=== PATIENT | female | born 1940 | race Caucasian/White ===

== ENCOUNTER → 2017-02-21 15:05 | Outpatient (CLI) | payer MEDICARE, BC ==
[2012-01-15 16:54] VITALS: BMI 28.6
== END | disposition home or self-care (01) ==
LOC: D.MAMMO 10:00
DX: Z12.31 Encounter for screening mammogram for malignant neoplasm of breast (principal)

== ENCOUNTER → 2017-03-05 13:09 | Outpatient (CLI) | payer MEDICARE, BC ==
[2012-01-15 16:54] VITALS: BMI 28.6
== END | disposition home or self-care (01) ==
LOC: D.RT 13:09
DX: J84.10 Pulmonary fibrosis, unspecified (principal)

== ENCOUNTER → 2017-03-22 12:58 | Outpatient (CLI) | payer MEDICARE, BC ==
[2012-01-15 16:54] VITALS: BMI 28.6
== END | disposition home or self-care (01) ==
LOC: D.MAMMO 09:30
DX: R92.8 Other abnormal and inconclusive findings on diagnostic imaging of breast (principal)

== ENCOUNTER 2017-04-22 16:05 | Emergency (ER) | payer MEDICARE, BC ==
[2012-01-15 16:54] VITALS: BMI 28.6
[2017-04-22 18:17] LABS: BASOPHILS 0.5 % (0-2); EOSINOPHILS 3.5 % (0-7); HEMATOCRIT 36.3 % (36.0-48.0); HEMOGLOBIN 12.1 g/dL (12-16); IMMATURE GRANULOCYTES 0.3 % (0-5); LYMPHOCYTES 29.8 % (15-50); MCH 29.5 pg (26.0-34.0); MCHC 33.3 g/dL (31.0-37.0); MCV 88.5 fL (80.0-100.0); MEAN PLATELET VOLUME 10.2 fL (7.4-10.4); NEUTROPHILS 58.9 % (40-80); PLATELET COUNT 167 10x3/uL (130-400); RDW 13.7 % (11.5-14.5); WBC 6.3 10x3/uL (4.8-10.8)
[2017-04-22 18:37] LABS: ALBUMIN 3.8 g/dL (3.4-5.0); ALKALINE PHOSPHATASE 87 U/L (46-116); ALT (SGPT) 37 U/L (10-68); BILIRUBIN - TOTAL 0.33 mg/dL (0.2-1.3); CALC OSMOLALITY 285 mosm/kg (275-300); CALCIUM 9.1 mg/dL (8.5-10.1); CARBON DIOXIDE 24.8 mmol/L (21.0-32.0); CHLORIDE - SERUM 106 mmol/L (98-107); CREATININE - SERUM 1.6 mg/dL (0.6-1.3); GLUCOSE 94 mg/dL (74-106); POTASSIUM - SERUM 3.8 mmol/L (3.5-5.1); SODIUM 142 mmol/L (136-145); UREA NITROGEN 21 mg/dL (7-18); eGFR NON AFRICAN AMERICAN 33 mL/min (90-120)
[2017-04-22 18:41] LABS: CREATINE KINASE 86 UL (21-215)
[2017-04-22 18:43] LABS: TROPONIN-I < 0.017 ng/mL (0.000-0.060)
== END 2017-04-22 19:38 | disposition home or self-care (01) ==
LOC: D.ER 16:05
PROVIDERS: Nurse Practitioner Family
DX: G50.0 Trigeminal neuralgia (principal); I10 Essential (primary) hypertension; K21.9 Gastro-esophageal reflux disease without esophagitis

== ENCOUNTER → 2017-09-27 09:26 | Outpatient (CLI) | payer MEDICARE, BC ==
[2012-01-15 16:54] VITALS: BMI 28.6
== END | disposition home or self-care (01) ==
LOC: D.RT 09:26
DX: R91.1 Solitary pulmonary nodule (principal); J84.10 Pulmonary fibrosis, unspecified

== ENCOUNTER 2017-10-11 18:38 | Inpatient (IN) | payer MEDICARE, BC ==
--- NOTE | ~2017-10-11 | HP ---
PATIENT: SAMMI DURAN MEDICAL RECORD: [id number] ACCOUNT: [id number] LOCATION:D.MS Chi2203 : 38 ADMISSION DATE: 10/11/17 HISTORY AND PHYSICAL EXAMINATION REASON FOR ADMISSION: Shortness of breath, cough and right shoulder pain. HISTORY OF PRESENT ILLNESS: The patient is a 76-year-old female well known to me with history of pulmonary fibrosis. She states, 2 days ago she noted onset of increasing cough, congestion without sputum production. She denied fever until last night in the ER. After admission, she developed some pain in her right upper shoulder area as well, but that has gotten better. Chest pain was worse on deep inspiration. PAST MEDICAL HISTORY: Pulmonary fibrosis, osteoarthritis, depression, remote pulmonary embolism after sustaining a DVT after total hip replacement, essential hypertension, dyslipidemia, GERD, meralgia paresthetica of right lower extremity, osteoarthritis of left knee, urinary incontinence, varicose veins o lower extremities. PAST SURGICAL HISTORY: Bilateral hip replacements. FAMILY HISTORY: Father at 67, had renal disease and diabetes. Mother with hypertension. SOCIAL HISTORY: Recently . Her had severe dementia for the last 5 years of his life and was very stressful situation for her. She is a non-smoker, nondrinker lifelong, ALLERGIES: TO RIN INHIBITORS AND AMITRIPTYLINE CAUSING NAUSEA, DETROL, MOBIC AND VOLTAREN INTOLERANCE. HOME MEDICATIONS: Gabapentin 100 mg p.o. t.i.d., Nexium 40 mg a day, DuoNeb updrafts 3 times daily, Proventil HFA rescue inhaler p.r.n., Tegretol-XR 100 mg p.o. nightly, Advair Diskus 250/50 one puff b.i.d., chlorthalidone 25 mg every morning, Vining 5/325 one every 4 to 6 hours p.r.n. severe pain, carbamazepine ER 100 tablets 1 by mouth every 12 hours, metoprolol succinate ER 50 mg p.o. daily, diclofenac sodium 50 mg p.o. b.i.d., Dyazide 1 every morning. REVIEW OF SYSTEMS: GENERAL: She has been fatigued, worse in the last 2 days and fever spiking the night of admission. HEENT: No recent visual change, sinus congestion, sore throat or hearing difficulty. She does wear glasses to read. RESPIRATORY: Increasing cough, congestion, nonproductive for the last 2 days with pleuritic type pain in her right upper chest. No hemoptysis. CARDIAC: No exertional chest pain, just rest pain on deep inspiration. No recent increasing edema in her lower extremities or palpitations. GASTROINTESTINAL: No nausea, vomiting, or change in bowel habits. ENDOCRINE: Denies polyuria, polydipsia, heat or cold intolerance. NEUROLOGIC: Denies motor or sensory deficits, confusion or memory loss. PSYCHIATRIC: Admits to depressed moods due to her 's . GENITOURINARY: Mild stress incontinence. No dysuria. MUSCULOSKELETAL: She has chronic intermittent pain in her lumbar spine and her knees. HISTORY AND PHYSICAL [id number] SAMMI DURAN PHYSICAL EXAMINATION: VITAL SIGNS: Temperature 99.7 Fahrenheit orally, pulse 104 and regular, respirations are 16, blood pressure 124/64 with a sat of 95% on room air. HEENT: Normocephalic. Eyes are clear. Pupils reactive. NECK: No bruits or masses. CHEST: Crackles bibasilar which are chronic. On deep inspiration, she has some pleuritic pain on her right upper chest and scapular area. HEART: Regular rate without murmur. ABDOMEN: Soft and nontender. PELVIC: Deferred. EXTREMITIES: Trace bipedal edema. Hips; fair range of motion. She has crepitus to left knee to flexion and extension. LABORATORY AND DIAGNOSTIC DATA: [place] [address], H&H of 11 and 34 respectively. Chemistry shows sodium of 132, potassium 4.3, BUN and creatinine of 31 and 2.2, glucose of 121, alkaline phosphatase of 133. ABG: pH 7.42, CO2 32.8, pO2 103 on 2 liters. D-dimer elevated at 2.77. Influenza A and B are negative. Chest x-ray reveals interstitial and alveolar airspace disease suspicious for pneumonia at bibasilar areas. VQ lung scan suggostive for high probability of left lower lobe pulmonary emboli. Venous Doppler shows no evidence of DVT. ASSESSMENT: 1. Acute left lower lobe pulmonary embolus. 2. Probable community-acquired pneumonia. 3. Pulmonary fibrosis. 4. Hypertension. 5. Hyperlipidemia. 6. History of trigeminal neuralgia. 7. Hyponatremia. PLAN: The patient is admitted for supplemental O2, subq Lovenox, placed on empiric antibiotics for community-acquired pneumonia, pulmonary toilet, pulmonary consultation. Diagnoses and hospital course discussed with the family. TRANSINT:[id number] Voice Confirmation ID: [id number] DOCUMENT ID: [id number] DAWSON ORTIZ MD at 1001 CC: [id number] DICTATION DATE: 10/12/17 1309 ELECTRIC DISTRIBUTION CHECKER: 10/12/172049 ADM IN [place] [id number] [place] [id number]
--- NOTE | ~2017-10-11 | CN ---
PATIENT NAME:SAMMI REYES MEDICAL RECORD: [id number] : 38 LOCATION:D.MS [facility]220 ADMIT DATE: 10/11/17 ACCOUNT: [id number] CONSULTING PHYSICIAN: ANUEL VELIZ MD REFERRING PHYSICIAN: LAI MATTSON MD DATE OF CONSULTATION: 10/12/2017 CONSULT REQUESTING PHYSICIAN: Lai Mattson MD REASON FOR CONSULTATION: Pulmonary embolism, pulmonary fibrosis and possible pneumonia. HISTORY OF PRESENT ILLNESS: Ms. Reyes is a 76-year-old female, very well known to me who has a history of chronic hypoxic respiratory pulmonary embolism. According to the patient, she was in her usual state of her health. For the last 3 days, she has coughing, wheezing and shortness of breath, but yesterday her shortness of breath got very worse and she has also right shoulder pain and the patient came into the ER. On evaluation, she was found that the patient has a pulmonary embolism, suspect pneumonia and the patient admitted to the hospital. She has cough with very little sputum production. Denies any fever or chills. There are no night sweats. REVIEW OF SYSTEMS: As in history of present illness. PAST MEDICAL HISTORY: 1. Chronic hypoxic respiratory failure. 2. Idiopathic pulmonary fibrosis. 3. Hypertension. 4. Urinary frequency. 5. Gastroesophageal reflux disease. 6. History of secondhand smoking with underlying COPD. PERSONAL AND SOCIAL HISTORY: The patient is a . Her just a few weeks ago. She is a nondrinker. FAMILY HISTORY: Noncontributory. PAST SURGICAL HISTORY: She has a right total knee replacement in 2007. ALLERGIES: No known drug allergies. PRESENT MEDICATIONS: She is on Advair, Zithromax IV, Rocephin IV. Her other medication is reviewed. PERSONAL AND SOCIAL HISTORY: The patient is a . She is a nonsmoker, nondrinker. She does have a heavy secondhand exposure to smoking because of her . PHYSICAL EXAMINATION: GENERAL: Now, the patient is lying comfortable in bed. She is not in any acute distress. VITAL SIGNS: The blood pressure is 133/60, pulse is 95, respirations 20, temperature is 100.8, SpO2 is 97% on 2 liters nasal cannula. HEENT: Conjunctivae pink, sclerae nonicteric. NECK: Supple. No JVD. CONSULT REPORT [id number] SAMMI REYES CHEST: There are bilateral crackles with rales. No wheezing. HEART: Rhythm regular, normal sound, no murmur. ABDOMEN: Soft, bowel sounds present. No hepatosplenomegaly. RECTAL: Deferred. EXTREMITIES: No cyanosis, no clubbing, no pedal edema. SKIN: Warm, normal turgor. CENTRAL NERVOUS SYSTEM: The patient is awake and alert. There is no obvious cranial nerve abnormality. The gait was not tested. IMAGING: Chest radiograph, there is bilateral lower lobe interstitial infiltrate. VQ scan is high probability for PE with perfusion defects in the left lower lobe. LABORATORY DATA: CBC; the WBC is 14.8, hemoglobin 11.4, hematocrit 34.5, the platelet count 191. Chemistry; sodium 132, potassium 4.3, BUN is 31, creatinine 2.2. IMPRESSION: 1. Bibasilar pneumonia. 2. Mvhpx-gf-qzvkdfx hypoxic respiratory failure. 3. Pulmonary embolism. 4. Idiopathic pulmonary fibrosis. 5. Suspect chronic obstructive pulmonary disease with exacerbation. 6. Acute leukocytosis. 7. Chronic kidney disease. RECOMMENDATION: 1. Discontinue Advair, start her on Brovana and budesonide nebulizer. 2. Xopenex nebulizer. 3. Start methylprednisolone IV. 4. Discontinue Zithromax, start on Levaquin, continue Rocephin. We will continue Lovenox 1 mg per kg subQ b.i.d. for 3 days, then we will change her to oral agents. Dr. Mattson, thank you for involving me in the care of Ms. Reyes. Followup labs and chest radiographs. TRANSINT:[id number] Voice Confirmation ID: [id number] DOCUMENT ID: [id number] ANUEL VELIZ MD at 1340 CC: LAI MATTSON [id number] DICTATION DATE: 10/12/17 1646 CABINETMAKER HELPER: 10/12/172141 DIS IN 10/18/17 [place] [id number] [place] [id number]
[2017-10-11 19:31] LABS: BASOPHILS 0.1 % (0-2); EOSINOPHILS 1.1 % (0-7); HEMATOCRIT 34.5 % (36.0-48.0); HEMOGLOBIN 11.4 g/dL (12-16); IMMATURE GRANULOCYTES 0.4 % (0-5); LYMPHOCYTES 7.7 % (15-50); MCH 29.9 pg (26.0-34.0); MCV 90.6 fL (80.0-100.0); MEAN PLATELET VOLUME 9.9 fL (7.4-10.4); NEUTROPHILS 81.7 % (40-80); PLATELET COUNT 191 10x3/uL (130-400); RBC 3.81 10x6/uL (4.00-5.40); RDW 13.5 % (11.5-14.5); WBC 14.8 10x3/uL (4.8-10.8)
[2017-10-11 19:47] LABS: ALBUMIN 3.5 g/dL (3.4-5.0); ALKALINE PHOSPHATASE 133 U/L (46-116); ALT (SGPT) 33 U/L (10-68); BILIRUBIN - TOTAL 0.81 mg/dL (0.2-1.3); CALC OSMOLALITY 272 mosm/kg (275-300); CALCIUM 9.1 mg/dL (8.5-10.1); CARBON DIOXIDE 24.1 mmol/L (21.0-32.0); CHLORIDE - SERUM 97 mmol/L (98-107); CREATININE - SERUM 2.2 mg/dL (0.6-1.3); GLUCOSE 121 mg/dL (74-106); POTASSIUM - SERUM 4.3 mmol/L (3.5-5.1); PROTEIN - SERUM 8.3 g/dL (6.4-8.2); SODIUM 132 mmol/L (136-145); UREA NITROGEN 31 mg/dL (7-18); eGFR NON AFRICAN AMERICAN 23 mL/min (90-120)
[2017-10-11 20:09] LABS: CHOL - HDL RATIO 3.2 ratio (2.3-4.1); CHOLESTEROL, TOTAL 143 mg/dL (0-200); CKMB 0.9 U/L (0.0-3.6); CREATINE KINASE 77 UL (21-215); HDL CHOLESTEROL 45 mg/dL (32-96); LDL CHOLESTEROL 86 mg/dL (0-100); LDL-HDL RATIO 1.9 ratio (1.5-3.5); TRIGLYCERIDE 60 mg/dL (30-200)
[2017-10-11 20:11] LABS: TROPONIN-I < 0.017 ng/mL (0.000-0.060)
[2017-10-12 00:30] VITALS: BP 141/60; BMI 28.3
[2017-10-12] MEDS ORDERED: NEXIUM40 MG PO (00:57)
[2017-10-12] MEDS ORDERED: DICLOFENAC SODI50 MG PO (00:57)
[2017-10-12] MEDS ORDERED: TOPROL XL50 MG PO (00:59)
[2017-10-12] MEDS ORDERED: ADVAIR 250/501 DISK INH (01:00)
[2017-10-12] MEDS ORDERED: GABAPENTIN100 MG PO (01:00)
[2017-10-12 04:00] VITALS: BP 118/55
[2017-10-12 09:00] VITALS: BP 115/62
[2017-10-12 12:45] VITALS: BP 133/60
[2017-10-12 16:41] VITALS: BP 120/56
[2017-10-12 20:00] VITALS: BP 128/82
[2017-10-13 04:00] VITALS: BP 157/82
[2017-10-13 05:22] LABS: BASOPHILS 0 % (0-2); EOSINOPHILS 0 % (0-7); HEMATOCRIT 36.4 % (36.0-48.0); HEMOGLOBIN 11.9 g/dL (12-16); IMMATURE GRANULOCYTES 0.4 % (0-5); LYMPHOCYTES 6.7 % (15-50); MCH 29.1 pg (26.0-34.0); MCHC 32.7 g/dL (31.0-37.0); MEAN PLATELET VOLUME 10.4 fL (7.4-10.4); MONOCYTES 1.8 % (2-11); NEUTROPHILS 91.1 % (40-80); RBC 4.09 10x6/uL (4.00-5.40); RDW 13.3 % (11.5-14.5)
[2017-10-13 05:23] LABS: PLATELET COUNT 232 10x3/uL (130-400); WBC 8.4 10x3/uL (4.8-10.8)
[2017-10-13 05:37] LABS: ANION GAP 17.1 mmol/L (8-16); CALCIUM 9.7 mg/dL (8.5-10.1); CARBON DIOXIDE 22.9 mmol/L (21.0-32.0); CREATININE - SERUM 1.4 mg/dL (0.6-1.3)
[2017-10-13 09:19] VITALS: BP 126/71
[2017-10-13 12:45] VITALS: BP 118/62
[2017-10-13 14:45] VITALS: BP 137/60
[2017-10-13 21:18] VITALS: BP 131/68
[2017-10-14 04:00] VITALS: BP 144/69
[2017-10-14 08:33] VITALS: BP 123/56
[2017-10-14 12:36] VITALS: BP 112/53
[2017-10-14 17:01] VITALS: BP 120/51
[2017-10-14 21:21] VITALS: BP 127/53
[2017-10-15 01:15] VITALS: BP 180/70
[2017-10-15 04:38] VITALS: BP 139/77
[2017-10-15 08:02] VITALS: BP 152/79
[2017-10-15 11:23] VITALS: BP 133/61
[2017-10-15 16:06] VITALS: BP 128/64
[2017-10-15 21:14] VITALS: BP 111/51
[2017-10-16 01:38] VITALS: BP 134/67
[2017-10-16 05:55] VITALS: BP 126/76
[2017-10-16 09:18] VITALS: BP 123/54
[2017-10-16 13:06] VITALS: BP 120/63
[2017-10-16 16:35] VITALS: BP 106/56
[2017-10-16 21:30] VITALS: BP 122/60
[2017-10-17 01:10] VITALS: BP 143/71
[2017-10-17 04:36] VITALS: BP 148/74
[2017-10-17 08:45] VITALS: BP 146/62
[2017-10-17 12:37] VITALS: BP 115/63
[2017-10-17 16:49] VITALS: BP 131/68
[2017-10-18] MEDS ORDERED: BROVANA15 MCG/2 M INH (06:49)
[2017-10-18] MEDS ORDERED: PREDNISONE20 MG PO (06:51)
[2017-10-18] MEDS ORDERED: Levaquin PO (06:52)
[2017-10-18] MEDS ORDERED: IPRAT-ALBUT 0.5-3 ML INH (06:52)
[2017-10-18] MEDS ORDERED: LEVAQUIN500 MG PO (06:52)
[2017-10-18] MEDS ORDERED: PULMICORT0.5 MG/21 UPD (06:52)
[2017-10-18] MEDS ORDERED: XARELTO15 MG PO (06:54)
[2017-10-18 08:50] VITALS: BP 121/67
== END 2017-10-18 10:48 | disposition home or self-care (01) | DRG 175 ==
LOC: D.ER 18:38 → D.MS 21:18 → D.SDCHOLD 10-12 13:19 → D.MS 10-12 13:20
PROVIDERS: Emergency Medicine; Family Medicine
DX: I26.99 Other pulmonary embolism without acute cor pulmonale (principal); J18.9 Pneumonia, unspecified organism; J96.21 Acute and chronic respiratory failure with hypoxia; N17.9 Acute kidney failure, unspecified; J98.11 Atelectasis; J84.112 Idiopathic pulmonary fibrosis; I12.9 Hypertensive chronic kidney disease with stage 1 through stage 4 chronic kidney disease, or unspecified chronic kidney disease; N18.9 Chronic kidney disease, unspecified; D64.9 Anemia, unspecified; E78.5 Hyperlipidemia, unspecified; K21.9 Gastro-esophageal reflux disease without esophagitis

== ENCOUNTER → 2018-02-22 10:06 | Outpatient (CLI) | payer MEDICARE, BC ==
[~2018-02-22 10:06] MED LIST: ADVAIR 250/501 DISK INH; Augmentin 500-125 TA PO; BROVANA15 MCG/2 M INH; DICLOFENAC SODI50 MG PO; GABAPENTIN100 MG PO; IPRAT-ALBUT 0.5-3 ML INH; LEVAQUIN500 MG PO; Levaquin PO; NEXIUM40 MG PO; PREDNISONE20 MG PO; PULMICORT0.5 MG/21 UPD; TOPROL XL50 MG PO; ULTRAM50 MG PO; XARELTO15 MG PO
[2018-02-22 11:02] LABS: ALBUMIN 3.6 g/dL (3.4-5.0); BILIRUBIN - DIRECT 0.13 mg/dL (0.00-0.30); BILIRUBIN - INDIRECT 0.17 mg/dL (0.00-1.00); BILIRUBIN - TOTAL 0.3 mg/dL (0.2-1.3); PROTEIN - SERUM 7.2 g/dL (6.4-8.2)
== END | disposition home or self-care (01) ==
LOC: D.LAB 10:06
PROVIDERS: Internal Medicine Pulmonary Disease
DX: J84.112 Idiopathic pulmonary fibrosis (principal)

== ENCOUNTER → 2018-04-03 08:42 | Outpatient (CLI) | payer MEDICARE, BC | END | disposition home or self-care (01) | LOC: D.RT 08:42 | DX: R91.1 Solitary pulmonary nodule (principal); J84.112 Idiopathic pulmonary fibrosis ==

== ENCOUNTER 2018-04-25 08:47 | Inpatient (IN) | payer MEDICARE, BC ==
[2018-04-25] VITALS (15 sets, daily range): BP systolic 115–175; BP diastolic 39–85
[~2018-04-25] VITALS: Ht 167.6 cm; Wt 72.0 kg
--- NOTE | ~2018-04-25 | CN ---
PATIENT NAME:SAMMI REYES MEDICAL RECORD: [id number] : 38 LOCATION:D.MS [facility]2217 ADMIT DATE: 04/25/18 ACCOUNT: [id number] CONSULTING PHYSICIAN: ANUEL VELIZ MD REFERRING PHYSICIAN: LAI MATTSON MD DATE OF CONSULTATION: 04/28/2018 CONSULT REQUESTING PHYSICIAN: Lai Mattson MD REASON FOR CONSULTATION: Questionable IVC filter placement. HISTORY OF PRESENT ILLNESS: Ms. Reyes is a 77-year-old female who has history of idiopathic pulmonary fibrosis and chronic hypoxic respiratory failure. She had pulmonary embolism in September. The patient was on Xarelto. She started bleeding, lower GI. She is also having some GI symptoms with Ofev. This was held because of the side effects and will be restarted at lower dose, 100 mg b.i.d. REVIEW OF THE SYSTEMS: Mainly in the history of present illness. PAST MEDICAL HISTORY: 1. Chronic hypoxic respiratory failure. 2. Idiopathic pulmonary fibrosis. 3. History of pulmonary embolism. 4. History of COPD secondary to secondhand exposure to smoking. 5. Gastroesophageal reflux disease. 6. History of DVT, postoperative. PAST SURGICAL HISTORY: Bilateral hip replacement. ALLERGIES: SHE IS ALLERGIC TO AMITRIPTYLINE, DETROL, MOBIC, AND VOLTAREN. PERSONAL AND SOCIAL HISTORY: She is a . Her of dementia. She never smoked, but she has secondhand smoke exposure. She is nondrinker. FAMILY HISTORY: Significant in her mother had pulmonary fibrosis as well as her sister has pulmonary fibrosis and she is on medication. PHYSICAL EXAMINATION: GENERAL: Now, the patient is lying comfortably in bed. She is not in acute distress. VITAL SIGNS: The blood pressure is 110/50, pulse is 91, respiration 20, temperature 98.1, and SpO2 97% on 2 liters nasal cannula. HEENT: Conjunctivae are pink. Sclerae are not icteric. NECK: Supple. No JVD. CHEST: There are bilateral crackles. No wheezing. HEART: Rhythm regular. Normal sound. No murmur. ABDOMEN: Abdomen is soft. Bowel sounds present. No hepatosplenomegaly. RECTAL: Deferred. EXTREMITIES: No cyanosis. No clubbing. No pedal edema. SKIN: The skin is warm. Normal turgor. CENTRAL NERVOUS SYSTEM: The patient is awake and alert. There is no obvious cranial nerve abnormality. The gait was not tested. IMAGING: Chest radiograph; there is bilateral increased interstitial marking. CONSULT REPORT [id number] SAMMI REYES No consolidation. LABORATORY DATA: CBC; the WBC is 6.5, hemoglobin 8.8, and hematocrit 25.9. Posttransfusion, the hematocrit is 30.7. Chemistry; sodium 134, potassium 4.4, BUN is 9, creatinine 1.2. IMPRESSION: 1. Chronic hypoxic respiratory failure. 2. Idiopathic pulmonary fibrosis. 3. GI bleed. 4. Anemia secondary to GI bleed. 5. History of pulmonary embolism and DVT in the past. 6. Gastroesophageal reflux disease. RECOMMENDATION: 1. I will agree to put the IVC filter placement with the patient's history of DVT and PE as well as idiopathic pulmonary fibrosis and chronic hypoxic respiratory failure. 2. After the discharge, the patient will restart Ofev 100 mg b.i.d. 3. Continue supplemental oxygen. 4. Inhaled medication if required. Dr. Mattson, thank you for involving me in the care of Ms. Reyes. TRANSINT:[id number] Voice Confirmation ID: [id number] DOCUMENT ID: [id number] ANUEL VELIZ MD CC: [id number] DICTATION DATE: 04/28/18 171 HEALTH SERVICES INFORMATION SPECIALIST: 04/28/181929 ADM IN [facility] [address] [place] [id number]
--- NOTE | ~2018-04-25 | HP ---
PATIENT: SAMMI DURAN MEDICAL RECORD: [id number] ACCOUNT: [id number] LOCATION:[facility] D.2302 : 38 ADMISSION DATE: 04/25/18 PCP: DAWSON ORTIZ MD HISTORY AND PHYSICAL EXAMINATION REASON FOR ADMISSION: Shortness of breath and cramping abdominal pain. HISTORY OF PRESENT ILLNESS: The patient is a 77-year-old female with history of severe pulmonary fibrosis, on home oxygen. She has been on medication for the diagnosis recently, but has been causing diarrhea. Dr. Villegas, her compliance project manager had lowered the dose to once daily to see if that would help. She said, 2 weeks ago, she became lightheaded and fell over the chair, did not lose consciousness. She thought she had lost her balance. For the last 2-3 days, she has been more fatigued and lightheaded. She said her stools have been watery, but not black or tarry. She denies abdominal pain. The patient has also had a pulmonary embolism in September of 2017, which was her second embolism, so she is on Xarelto for that. The patient came to the ED, was noted to be very pale. Hemoglobin was 6 and a hematocrit of 19, BUN and creatinine in the normal range. She is now admitted for probable GI bleed, symptomatic anemia. Her stool is heme positive. She has no prior history of upper or lower GI bleeds. She had a colonoscopy approximately [address] Avery, those results are unknown. She thinks she had diverticulosis. OTHER PAST HISTORY: PE in September of 2017, chronic hypoxic respiratory failure, pulmonary fibrosis idiopathic type, hypertension, osteoarthritis, history of secondhand smoking with underlying COPD, GERD, remote history of DVT, postoperative knee scope, history of depression since 's last year, dyslipidemia, meralgia paresthetica of right lower extremity, osteoarthritis of left knee, varicose veins of lower extremities. PAST SURGICAL HISTORY: Bilateral hip replacements. FAMILY HISTORY: Father at 67 from renal disease and diabetes. Mother with hypertension. She is . SOCIAL HISTORY: recently. Her had severe dementia. She is a nonsmoker and nondrinker, but her smoked all of their life, so she had secondary smoke exposure. ALLERGIES: RIN INHIBITORS, AMITRIPTYLINE causing nausea, DETROL, MOBIC, and VOLTAREN intolerance. CURRENT MEDICATIONS: Xarelto 15 mg daily, Levaquin 500 mg daily, Brovana inhaler 15 mcg 1 puff b.i.d., DuoNeb updrafts q.i.d., Toprol-XL 50 mg a day, gabapentin 300 mg at h.s., Advair Diskus 250/50 one puff b.i.d., Nexium 40 mg a day, prednisone 20 mg daily. REVIEW OF SYSTEMS: GENERAL: Chronic fatigue, worse over the last 2 weeks. No fever. HEENT: No recent visual change, sinus congestion, or sore throat, has noticed her voice is very weak. RESPIRATORY: Chronic exertional rest dyspnea with no sputum production. Denies hemoptysis. CARDIAC: No recent chest pain, claudication, or edema. Has positive JEONG. GASTROINTESTINAL: No nausea, but has had marked diarrhea every other day for HISTORY AND PHYSICAL [id number] SAMMI DURAN the last several months of starting pulmonary fibrosis medication. She has not noticed any melena. No previous history of upper or lower GI bleeding or peptic ulcer disease. GENITOURINARY: Mild stress incontinence with some off color urine recently for she is on Levaquin. MUSCULOSKELETAL: Has chronic arthralgias of her lumbar spine. INTEGUMENT: No rash or itching, but the family has noticed her skin to be very pale and white. PSYCHIATRIC: Admits to depressed mood. No suicidal ideation. NEUROLOGIC: Denies headache, visual change. Denies history of seizures, motor or sensory deficits. PHYSICAL EXAMINATION: VITAL SIGNS: Her temperature is 98.3 Fahrenheit, pulse is 75 and regular, respirations 16, blood pressure 126/39, sat 99% on 2 liters. HEENT: Normocephalic. Eyes are clear with pale palpebral conjunctivae. Oropharynx unremarkable. NECK: Supple, without bruits. CHEST: Distant breath sounds with bilateral crackles inspiratory throughout the lung tatum. No E to A change. No wheeze. HEART: Regular rate without gallop. ABDOMEN: Soft, nontender throughout. Bowel sounds are active. PELVIC: Deferred. RECTAL: Heme positive stool. EXTREMITIES: 2+ bipedal edema from the knees to the ankles. Negative Homans sign. LABORATORY DATA: Shows a white count of 7900, H&H of 6.2 and 19.5 with an MCV of 87.5, platelet count 261,000, neutrophils 60, lymphocytes 20. Chemistry: Sodium is 134 low, BUN and creatinine are 21 and 1.5, GFR is 35. Glucose nonfasting is 164. Liver functions are normal. ProBNP is 693, albumin low at 3.1. Urine: Cloudy, nitrite positive, 10-25 white cells, 5-10 epithelial cells, many bacteria. D-dimer is less than 0.27. Coagulation studies were not obtained. IMAGING: Chest x-ray shows chronic bibasilar pulmonary fibrotic changes. ASSESSMENT: 1. Symptomatic anemia with heme-positive stool. 2. Pulmonary fibrosis, cfukhbfz-wz-amqnay. 3. History of hypertension. 4. Subacute pulmonary embolus, on Xarelto. 5. History of DVT post-orthopedic surgery. 6. Osteoarthritis. 7. Meralgia paresthetica of right lower extremity. 8. Hyperlipidemia. 9. Depression. 10. UTI. PLAN: Culture urine. Place on IV Levaquin. She is being transfused packed cells in the ICU. Dr. Villegas recommended continuing her respiratory meds at this time. GI has been consulted. Discussed the patient's current medical situation with the patient and her family. TRANSINT:[id number] Voice Confirmation ID: [id number] DOCUMENT ID: [id number] HISTORY AND PHYSICAL [id number] SAMMI DURAN TIMOTHY MD at 2106 CC: [id number] DICTATION DATE: 04/25/18 1302 MATTRESS FILLER: 04/25/18 1320 ADM IN [place] [id number] [place] [id number]
[~2018-04-25 08:47] MED LIST changes: -Augmentin 500-125 TA PO; -ULTRAM50 MG PO
[2018-04-25 09:04] LABS: BASOPHILS 0.5 % (0-2); EOSINOPHILS 5.1 % (0-7); IMMATURE GRANULOCYTES 0.3 % (0-5); MCH 27.9 pg (26.0-34.0); MCHC 31.8 g/dL (31.0-37.0); MCV 87.8 fL (80.0-100.0); MEAN PLATELET VOLUME 9.5 fL (7.4-10.4); MONOCYTES 7.8 % (2-11); NEUTROPHILS 60.3 % (40-80); PLATELET COUNT 261 10x3/uL (130-400); RBC 2.22 10x6/uL (4.00-5.40); RDW 14.7 % (11.5-14.5); WBC 7.9 10x3/uL (4.8-10.8)
[2018-04-25 09:10] LABS: HEMATOCRIT 19.5 % (36.0-48.0); HEMOGLOBIN 6.2 g/dL (12-16)
[2018-04-25 09:20] LABS: ALBUMIN 3.1 g/dL (3.4-5.0); ALKALINE PHOSPHATASE 76 U/L (46-116); ALT (SGPT) 26 U/L (10-68); BILIRUBIN - TOTAL 0.28 mg/dL (0.2-1.3); CALC OSMOLALITY 274 mosm/kg (275-300); CALCIUM 8.3 mg/dL (8.5-10.1); CARBON DIOXIDE 23.1 mmol/L (21.0-32.0); CHLORIDE - SERUM 104 mmol/L (98-107); CREATININE - SERUM 1.5 mg/dL (0.6-1.3); GLUCOSE 164 mg/dL (74-106); POTASSIUM - SERUM 4.4 mmol/L (3.5-5.1); PROTEIN - SERUM 6.5 g/dL (6.4-8.2); SODIUM 134 mmol/L (136-145); UREA NITROGEN 21 mg/dL (7-18); eGFR NON AFRICAN AMERICAN 35 mL/min (90-120)
[2018-04-25 09:32] LABS: CKMB 2.4 U/L (0.0-3.6); CREATINE KINASE 95 UL (21-215); PRO BNP 693 pg/mL (0-450); TROPONIN-I < 0.017 ng/mL (0.000-0.060)
[2018-04-25 11:02] LABS: APPEARANCE CLOUDY (CLEAR); BACTERIA MANY /hpf (NONE SEEN); BILIRUBIN NEGATIVE (NEGATIVE); COLOR YELLOW (YELLOW); GLUCOSE NEGATIVE (NEGATIVE); KETONE NEGATIVE (NEGATIVE); MUCUS <1+ /lpf (NONE SEEN); NITRITE POSITIVE (NEGATIVE); PROTEIN TRACE mg/dL (NEGATIVE); RED CELLS - URINE RARE /hpf (0-5); UROBILINOGEN NORMAL (NORMAL)
[2018-04-25 18:16] LABS: HEMATOCRIT 26.5 % (36.0-48.0); HEMOGLOBIN 8.8 g/dL (12-16)
[2018-04-26] VITALS (24 sets, daily range): BP systolic 99–167; BP diastolic 57–92; Ht 167.6 cm; Wt 72.0 kg
[2018-04-26 03:52] LABS: ANION GAP 9.3 mmol/L (8-16); CALCIUM 8.2 mg/dL (8.5-10.1); CARBON DIOXIDE 25.9 mmol/L (21.0-32.0); CREATININE - SERUM 1.3 mg/dL (0.6-1.3); POTASSIUM - SERUM 4.2 mmol/L (3.5-5.1)
[2018-04-26 03:59] LABS: HEMATOCRIT 25.9 % (36.0-48.0); HEMOGLOBIN 8.8 g/dL (12-16); LYMPHOCYTES 14.7 % (15-50); MCH 28.5 pg (26.0-34.0); NEUTROPHILS 76.8 % (40-80); RDW 15.7 % (11.5-14.5); WBC 6.5 10x3/uL (4.8-10.8)
[2018-04-26 04:00] LABS: MCV 83.8 fL (80.0-100.0); PLATELET COUNT 193 10x3/uL (130-400); RBC 3.09 10x6/uL (4.00-5.40)
[2018-04-26 11:02] LABS: INR 1.25 (0.85-1.17); PROTIME 15.3 SECONDS (11.6-15.0)
[2018-04-26 17:41] LABS: HEMATOCRIT 28.7 % (36.0-48.0); HEMOGLOBIN 9.6 g/dL (12-16)
[2018-04-27] VITALS (18 sets, daily range): BP systolic 120–166; BP diastolic 56–100
[2018-04-27 05:15] LABS: BASOPHILS 0.2 % (0-2); EOSINOPHILS 2.2 % (0-7); HEMATOCRIT 30.8 % (36.0-48.0); HEMOGLOBIN 10.1 g/dL (12-16); IMMATURE GRANULOCYTES 0.7 % (0-5); LYMPHOCYTES 19.8 % (15-50); MCH 28.5 pg (26.0-34.0); MCHC 32.8 g/dL (31.0-37.0); MEAN PLATELET VOLUME 9.6 fL (7.4-10.4); MONOCYTES 11.8 % (2-11); NEUTROPHILS 65.3 % (40-80); PLATELET COUNT 156 10x3/uL (130-400); RBC 3.55 10x6/uL (4.00-5.40); RDW 15.2 % (11.5-14.5)
[2018-04-27 05:21] LABS: MCV 86.8 fL (80.0-100.0)
[2018-04-27 05:32] LABS: ANION GAP 12.5 mmol/L (8-16); CALCIUM 8.6 mg/dL (8.5-10.1); CARBON DIOXIDE 24.5 mmol/L (21.0-32.0); CREATININE - SERUM 1.2 mg/dL (0.6-1.3)
[2018-04-28] VITALS: BP 154/65
[2018-04-28 03:52] VITALS: BP 152/70
[2018-04-28 10:10] VITALS: BP 148/71
[2018-04-28 10:13] LABS: BASOPHILS 0.3 % (0-2); EOSINOPHILS 2.8 % (0-7); HEMATOCRIT 30.7 % (36.0-48.0); IMMATURE GRANULOCYTES 0.3 % (0-5); LYMPHOCYTES 9.5 % (15-50); MCH 28.6 pg (26.0-34.0); MCHC 32.6 g/dL (31.0-37.0); MCV 87.7 fL (80.0-100.0); MEAN PLATELET VOLUME 9.5 fL (7.4-10.4); MONOCYTES 7.7 % (2-11); NEUTROPHILS 79.4 % (40-80); PLATELET COUNT 154 10x3/uL (130-400); RDW 15.3 % (11.5-14.5)
[2018-04-28 10:14] LABS: WBC 7.8 10x3/uL (4.8-10.8)
[2018-04-28 15:04] VITALS: BP 110/50
[2018-04-28 20:23] VITALS: BP 102/66
[2018-04-29 05:08] VITALS: BP 105/63
[2018-04-29 05:20] LABS: BASOPHILS 0.1 % (0-2); EOSINOPHILS 4.5 % (0-7); HEMATOCRIT 29.5 % (36.0-48.0); HEMOGLOBIN 9.5 g/dL (12-16); IMMATURE GRANULOCYTES 0.3 % (0-5); LYMPHOCYTES 20.4 % (15-50); MCH 28.4 pg (26.0-34.0); MCHC 32.2 g/dL (31.0-37.0); MCV 88.3 fL (80.0-100.0); MEAN PLATELET VOLUME 9.2 fL (7.4-10.4); MONOCYTES 14.9 % (2-11); NEUTROPHILS 59.8 % (40-80); PLATELET COUNT 162 10x3/uL (130-400); RBC 3.34 10x6/uL (4.00-5.40); RDW 15.2 % (11.5-14.5); WBC 7.4 10x3/uL (4.8-10.8)
[2018-04-29 07:43] LABS: INR 1.12 (0.85-1.17)
[2018-04-29 08:07] VITALS: BP 130/70
[2018-04-29 12:32] VITALS: BP 145/74
[2018-04-29 16:31] VITALS: BP 110/49
[2018-04-29 23:25] VITALS: BP 103/46
[2018-04-30 05:04] VITALS: BP 147/57
[2018-04-30 05:36] LABS: BASOPHILS 0.3 % (0-2); EOSINOPHILS 6.5 % (0-7); HEMATOCRIT 29.1 % (36.0-48.0); HEMOGLOBIN 9.4 g/dL (12-16); IMMATURE GRANULOCYTES 0.3 % (0-5); LYMPHOCYTES 17.8 % (15-50); MCH 28.7 pg (26.0-34.0); MCHC 32.3 g/dL (31.0-37.0); MCV 88.7 fL (80.0-100.0); MEAN PLATELET VOLUME 9.4 fL (7.4-10.4); MONOCYTES 12.6 % (2-11); NEUTROPHILS 62.5 % (40-80); PLATELET COUNT 169 10x3/uL (130-400); RBC 3.28 10x6/uL (4.00-5.40); RDW 15.3 % (11.5-14.5); WBC 6.2 10x3/uL (4.8-10.8)
[2018-04-30 08:23] VITALS: BP 137/75
[2018-04-30 11:28] VITALS: BP 135/80
[2018-04-30 15:54] VITALS: BP 114/52
[2018-04-30 21:31] VITALS: BP 119/51
[2018-05-01 05:13] VITALS: BP 141/51
[2018-05-01] MEDS ORDERED: Augmentin 500-125 TA PO (07:26)
[2018-05-01] MEDS ORDERED: ULTRAM50 MG PO (07:27)
[2018-05-01 08:31] VITALS: BP 121/57
[2018-05-01 13:20] VITALS: BP 109/56
[2018-05-01 16:24] VITALS: BP 91/42
== END 2018-05-01 19:27 | DRG 813 ==
LOC: D.ER 08:47 → D.ICU 10:30 → D.MS 10:30 → D.EDHOLD 10:30 → D.ICU 10:40 → D.MS 04-27 17:35 → D.SDCHOLD 04-29 16:06 → D.MS 04-29 16:06
PROVIDERS: Family Medicine; Internal Medicine Gastroenterology; Specialist
PROC: 0DJ08ZZ Inspection of Upper Intestinal Tract, Via Natural or Artificial Opening Endoscopic (ICD-10-PCS; principal; 2018-04-25 16:57)
PROC: 0DJD8ZZ Inspection of Lower Intestinal Tract, Via Natural or Artificial Opening Endoscopic (ICD-10-PCS; 2018-04-26)
DX: D68.32 Hemorrhagic disorder due to extrinsic circulating anticoagulants (principal); K92.2 Gastrointestinal hemorrhage, unspecified; N39.0 Urinary tract infection, site not specified; D62 Acute posthemorrhagic anemia; J96.11 Chronic respiratory failure with hypoxia; I10 Essential (primary) hypertension; M19.90 Unspecified osteoarthritis, unspecified site; E78.5 Hyperlipidemia, unspecified; F32.9 Major depressive disorder, single episode, unspecified; R20.2 Paresthesia of skin; M25.512 Pain in left shoulder; M25.532 Pain in left wrist; Z86.711 Personal history of pulmonary embolism; K52.9 Noninfective gastroenteritis and colitis, unspecified; J84.112 Idiopathic pulmonary fibrosis

== ENCOUNTER 2018-05-01 20:00 | Inpatient (IN) | payer MEDICARE, BC ==
[~2018-05-01] VITALS: Ht 167.6 cm; Wt 68.5 kg
--- NOTE | ~2018-05-01 | RHP ---
PATIENT: SAMMI DURAN MEDICAL RECORD: [id number] ACCOUNT: [id number] LOCATION:[facility]1113 : 38 ADMISSION DATE: 05/01/18 REHABILITATION HISTORY AND PHYSICAL EXAMINATION POST ADMISSION PHYSICIAN EXAMINATION POST-ADMISSION PHYSICAL EXAMINATION AND HISTORY AND PHYSICAL DATE OF ADMISSION: 05/01/2018 ADMITTING DIAGNOSIS: Debility secondary to GI bleed. HISTORY OF PRESENT ILLNESS: The patient is admitted to inpatient rehab with debility secondary to GI bleed. She is a 77-year-old female patient that presented to the ED with shortness of breath and cramping abdominal pain. She has severe pulmonary fibrosis and chronic hypoxic respiratory failure, on home O2. She has been on medication that was recently changed by her pulmonary doctor as it had been causing her some diarrhea. Dr. Villegas, her clinical services manager, had lowered the dose to see if it will help. She said 2 weeks prior to her acute hospitalization that she had become lightheaded, fell over a chair, did not lose consciousness. She thought that she had lost her balance 2-3 days prior to her hospital admit. On 04/25, she had been more fatigued and lightheaded. She said her stools had been watery, but not really black or tarry. She has had pulmonary embolism in September 2017, was her second embolism and she was on Xarelto for that. Upon admission, hemoglobin was 6, hematocrit was 19. She was admitted for probable GI bleed, symptomatic anemia. Stool was heme positive. No history of GI bleeds, but on past colonoscopy she did believe she had diverticulosis. She lives at home alone, was independent with ADLs and mobility and with use of oxygen just as needed. She is currently very weak and debilitated. She is being monitored for further GI bleed, self-care deficit. She has a Siegel catheter. She has had UTI and is currently receiving treatment for this. We are also monitoring her pulmonary functions closely as she is currently off some of her medications secondary to the GI bleed and side effects. She does have a history of DVT and PE, is currently on aspirin 325. These are also barriers to her discharge home at this time. She and her spouse had both been to our inpatient rehab in the past and had good results. She is currently standby assist to max assist for ADLs and is mod assist to total assist for mobility. She is currently having pain in her left wrist, which they believe could be secondary to gout. She and her family would like her to return home at her prior level of functioning or better if possible. Comorbidities in this patient include chronic hypoxic respiratory failure secondary to idiopathic pulmonary fibrosis, history of GI bleed, acute blood loss anemia, gastroesophageal reflux disease, chronic diarrhea, debility, wrist pain, hypertension, hyperlipidemia, osteoarthritis, depression, anemia, osteoarthritis, and arthralgias. PAST MEDICAL HISTORY: Significant for chronic hypoxic respiratory failure, pulmonary fibrosis, hypertension, osteoarthritis, history of secondhand smoking, COPD, gastroesophageal reflux disease, remote history of DVT, history of depression, dyslipidemia. She has got a history of osteoarthritis, varicose veins, DVT, pneumonia, occasional urinary incontinence, occasional urinary retention, arthritis, and chronic back pain. PAST SURGICAL HISTORY: Includes bilateral hip replacement, postop knee scope, hysterectomy, and cataracts. HISTORY AND PHYSICAL [id number] SAMMI DURAN ALLERGIES: No known drug allergies. CURRENT MEDICATIONS: Include Brovana 15 mcg b.i.d., budesonide 0.5 mg b.i.d., metoprolol 50 mg daily, Protonix 40 mg daily, DuoNeb updrafts q.i.d. p.r.n., Ultram 50 mg every 6 hours p.r.n., Neurontin 300 mg at bedtime, and Augmentin 500/125 one tab t.i.d. HABITS: No current alcohol or tobacco use. FAMILY HISTORY: Noncontributory. SOCIAL HISTORY: The patient hopes to return back home and get back to her prior level of functioning. REVIEW OF SYSTEMS: GENERAL: Does complain of weakness and fatigue. HEENT: Does complain of cold and cough at times. LUNGS: Does complain of some shortness of breath. PHYSICAL EXAMINATION: VITAL SIGNS: Stable, afebrile. GENERAL: An elderly female, in no acute distress upon exam. HEENT: Normocephalic and atraumatic. Mucosa moist. NECK: Supple. No lymphadenopathy. LUNGS: Clear in upper tatum, but decreased breath sounds in the bases. She does have decreased air movement appreciated. CARDIOVASCULAR: Regular rate and rhythm. ABDOMEN: Benign. EXTREMITIES: No clubbing, cyanosis, or edema. NEUROLOGIC: She is intact mentally, but does have noted weakness. LABORATORY DATA: Her white count is 5.8, H&H of 9.6 and 29.6, and her platelet count is noted to be 213. Her sodium is 139, potassium 4.3, BUN and creatinine of 26 and 1.1, and blood sugar is noted to be 88. 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 The patient has potential to make improvement. We will institute the following multidisciplinary therapies including, not limited to physical, occupational, respiratory, speech, nutritional services, prosthetics and orthotics. Given her complex medical condition and risks for more complications, rehabilitation services cannot be provided at a low level of care such as a [facility] facility. PLAN: 1. Admit to [facility] for intensive inpatient therapy to include the following disciplines: A. Physical therapy to improve gait, all transfer skills and bed mobility to a modified independent level. B. Occupational therapy to improve activities of daily living to a modified independent level. C. Case management to assist with discharge planning and placement options. D. Nutrition to assist with nutritional needs. E. Rehabilitation nursing to assist in monitoring the patient's underlying HISTORY AND PHYSICAL [id number] SAMMI DURAN medical conditions and to assist with any type of bowel or bladder management. 2. The patient's current medications and medical care will be continued. 3. The patient will be placed on standard fall precautions. 4. We will watch closely for any signs of DVT or PE in this patient since she is currently off her Xarelto. 5. We will continue on aspirin therapy as her anticoagulant. 6. I am going to follow up in the a.m. TRANSINT:[id number] Voice Confirmation ID: [id number] DOCUMENT ID: [id number] HANNAH notes whether there has been none or any medical/functional change since admission: - No change since preadmission screen. HANNAH attests patient continues to be appropriate for IRF: - Continues to be appropriate. PILAR MEHTA MD at 1733 CC: [id number] DICTATION DATE: 05/02/18907 INDUSTRIAL PSYCHOLOGIST: 05/02/[address] [facility] [address] [place] [address]
[2018-05-01 19:40] VITALS: BP 114/63
[~2018-05-01 20:00] MED LIST changes: +Augmentin 500-125 TA PO; +ULTRAM50 MG PO
[2018-05-01 22:23] VITALS: BP 114/63; BMI 24.4
[2018-05-02 06:32] LABS: APPEARANCE CLEAR (CLEAR); BILIRUBIN NEGATIVE (NEGATIVE); COLOR YELLOW (YELLOW); GLUCOSE NEGATIVE (NEGATIVE); KETONE NEGATIVE (NEGATIVE); NITRITE NEGATIVE (NEGATIVE); PROTEIN NEGATIVE (NEGATIVE); SPECIFIC GRAVITY 1.005 (1.005-1.020); UROBILINOGEN NORMAL (NORMAL)
[2018-05-02 06:38] LABS: BASOPHILS 0.3 % (0-2); HEMATOCRIT 29.6 % (36.0-48.0); HEMOGLOBIN 9.6 g/dL (12-16); IMMATURE GRANULOCYTES 0.3 % (0-5); LYMPHOCYTES 22.1 % (15-50); MCH 28.8 pg (26.0-34.0); MCHC 32.4 g/dL (31.0-37.0); MCV 88.9 fL (80.0-100.0); MONOCYTES 9.4 % (2-11); NEUTROPHILS 55.9 % (40-80); RBC 3.33 10x6/uL (4.00-5.40); RDW 15.3 % (11.5-14.5); WBC 5.8 10x3/uL (4.8-10.8)
[2018-05-02 06:39] LABS: ANION GAP 12.1 mmol/L (8-16); CALCIUM 8.1 mg/dL (8.5-10.1); CARBON DIOXIDE 27.2 mmol/L (21.0-32.0); CREATININE - SERUM 1.1 mg/dL (0.6-1.3); POTASSIUM - SERUM 4.3 mmol/L (3.5-5.1)
[2018-05-02 06:51] LABS: PLATELET COUNT 213 10x3/uL (130-400)
[2018-05-02 08:19] VITALS: BP 121/45
[2018-05-02 13:26] VITALS: Ht 167.6 cm; Wt 68.5 kg
[2018-05-02 19:00] VITALS: BP 91/52
[2018-05-03 06:24] LABS: BASOPHILS 0.4 % (0-2); EOSINOPHILS 11.8 % (0-7); HEMATOCRIT 28.6 % (36.0-48.0); HEMOGLOBIN 9.2 g/dL (12-16); IMMATURE GRANULOCYTES 0.2 % (0-5); LYMPHOCYTES 26.1 % (15-50); MCH 28.3 pg (26.0-34.0); MCHC 32.2 g/dL (31.0-37.0); MEAN PLATELET VOLUME 9.1 fL (7.4-10.4); MONOCYTES 10.2 % (2-11); NEUTROPHILS 51.3 % (40-80); PLATELET COUNT 193 10x3/uL (130-400); RBC 3.25 10x6/uL (4.00-5.40); RDW 15.2 % (11.5-14.5); WBC 5.4 10x3/uL (4.8-10.8)
[2018-05-03 06:44] LABS: ANION GAP 14.5 mmol/L (8-16); CALCIUM 8.3 mg/dL (8.5-10.1); CARBON DIOXIDE 24.7 mmol/L (21.0-32.0); POTASSIUM - SERUM 4.2 mmol/L (3.5-5.1)
[2018-05-03 07:02] LABS: CREATININE - SERUM 1.4 mg/dL (0.6-1.3)
[2018-05-03 08:05] VITALS: BP 114/46
[2018-05-03 19:21] VITALS: BP 114/46
[2018-05-04 08:00] VITALS: BP 111/55
[2018-05-04 20:00] VITALS: BP 128/46
[2018-05-05 08:00] VITALS: BP 120/64
[2018-05-05 21:30] VITALS: BP 141/78
[2018-05-06 08:20] VITALS: BP 114/53
[2018-05-06 09:16] LABS: BASOPHILS 0.4 % (0-2); EOSINOPHILS 5.2 % (0-7); HEMATOCRIT 31.2 % (36.0-48.0); HEMOGLOBIN 9.6 g/dL (12-16); IMMATURE GRANULOCYTES 0.1 % (0-5); LYMPHOCYTES 31.8 % (15-50); MCH 27.7 pg (26.0-34.0); MCHC 30.8 g/dL (31.0-37.0); MCV 90.2 fL (80.0-100.0); MEAN PLATELET VOLUME 9.9 fL (7.4-10.4); MONOCYTES 8.8 % (2-11); NEUTROPHILS 53.7 % (40-80); RBC 3.46 10x6/uL (4.00-5.40); RDW 15.1 % (11.5-14.5); WBC 6.7 10x3/uL (4.8-10.8)
[2018-05-06 09:22] LABS: PLATELET COUNT 261 10x3/uL (130-400)
[2018-05-06 09:38] LABS: ANION GAP 10.7 mmol/L (8-16); CALCIUM 9.1 mg/dL (8.5-10.1); CARBON DIOXIDE 28.7 mmol/L (21.0-32.0); CREATININE - SERUM 1.2 mg/dL (0.6-1.3); POTASSIUM - SERUM 3.4 mmol/L (3.5-5.1)
[2018-05-06 19:00] VITALS: BP 110/34
[2018-05-07 08:00] VITALS: BP 128/56
[2018-05-07 19:00] VITALS: BP 128/58
[2018-05-08 06:45] LABS: BASOPHILS 0.7 % (0-2); EOSINOPHILS 8.8 % (0-7); HEMATOCRIT 28.5 % (36.0-48.0); HEMOGLOBIN 8.9 g/dL (12-16); IMMATURE GRANULOCYTES 0.4 % (0-5); LYMPHOCYTES 31.1 % (15-50); MCH 27.8 pg (26.0-34.0); MCHC 31.2 g/dL (31.0-37.0); MCV 89.1 fL (80.0-100.0); MEAN PLATELET VOLUME 9.5 fL (7.4-10.4); MONOCYTES 7.6 % (2-11); NEUTROPHILS 51.4 % (40-80); PLATELET COUNT 252 10x3/uL (130-400); RDW 14.8 % (11.5-14.5); WBC 5.7 10x3/uL (4.8-10.8)
[2018-05-08 07:18] LABS: ANION GAP 12.5 mmol/L (8-16); CARBON DIOXIDE 27.6 mmol/L (21.0-32.0); CREATININE - SERUM 1.2 mg/dL (0.6-1.3)
[2018-05-08 07:19] LABS: POTASSIUM - SERUM 4.1 mmol/L (3.5-5.1)
[2018-05-08 08:00] VITALS: BP 132/53
[2018-05-08 19:00] VITALS: BP 118/61
[2018-05-09 08:00] VITALS: BP 106/54
[2018-05-09 19:00] VITALS: BP 131/54
[2018-05-10 06:52] LABS: BASOPHILS 0.6 % (0-2); IMMATURE GRANULOCYTES 0.4 % (0-5); LYMPHOCYTES 28.4 % (15-50); MCH 27.9 pg (26.0-34.0); MCHC 31.3 g/dL (31.0-37.0); MCV 89.1 fL (80.0-100.0); MEAN PLATELET VOLUME 9.7 fL (7.4-10.4); MONOCYTES 8.3 % (2-11); NEUTROPHILS 56.3 % (40-80); RBC 3.59 10x6/uL (4.00-5.40); RDW 14.6 % (11.5-14.5)
[2018-05-10 06:55] LABS: PLATELET COUNT 307 10x3/uL (130-400)
[2018-05-10 07:07] LABS: ANION GAP 13.9 mmol/L (8-16); CALCIUM 9.1 mg/dL (8.5-10.1); CARBON DIOXIDE 27.1 mmol/L (21.0-32.0); CREATININE - SERUM 1.2 mg/dL (0.6-1.3)
[2018-05-10 08:00] VITALS: BP 151/43
[2018-05-10 23:27] VITALS: BP 119/48
[2018-05-11 08:56] VITALS: BP 128/51
[2018-05-11 21:54] VITALS: BP 133/73
[2018-05-12 09:04] VITALS: BP 143/79
[2018-05-12 21:21] VITALS: BP 146/73
[2018-05-13 06:48] LABS: BASOPHILS 0.4 % (0-2); EOSINOPHILS 6.5 % (0-7); HEMATOCRIT 28.4 % (36.0-48.0); HEMOGLOBIN 8.9 g/dL (12-16); IMMATURE GRANULOCYTES 0.1 % (0-5); LYMPHOCYTES 19.6 % (15-50); MCH 27.6 pg (26.0-34.0); MCHC 31.3 g/dL (31.0-37.0); MCV 88.2 fL (80.0-100.0); MEAN PLATELET VOLUME 10.1 fL (7.4-10.4); MONOCYTES 8.1 % (2-11); NEUTROPHILS 65.3 % (40-80); PLATELET COUNT 253 10x3/uL (130-400); RBC 3.22 10x6/uL (4.00-5.40); RDW 14.8 % (11.5-14.5); WBC 6.9 10x3/uL (4.8-10.8)
[2018-05-13 07:07] LABS: ANION GAP 11.5 mmol/L (8-16); CALCIUM 8.7 mg/dL (8.5-10.1); CARBON DIOXIDE 24.4 mmol/L (21.0-32.0); CREATININE - SERUM 1.1 mg/dL (0.6-1.3); POTASSIUM - SERUM 3.9 mmol/L (3.5-5.1)
[2018-05-13 08:00] VITALS: BP 159/85
[2018-05-14 07:00] VITALS: BP 131/60
== END 2018-05-14 13:22 | disposition home health service (06) | DRG 948 ==
LOC: D.REHAB 20:00
PROVIDERS: Emergency Medicine
DX: R53.81 Other malaise (principal); J96.11 Chronic respiratory failure with hypoxia; D62 Acute posthemorrhagic anemia; K92.2 Gastrointestinal hemorrhage, unspecified; J84.10 Pulmonary fibrosis, unspecified; I10 Essential (primary) hypertension; M19.90 Unspecified osteoarthritis, unspecified site; E78.5 Hyperlipidemia, unspecified; M54.9 Dorsalgia, unspecified; G89.29 Other chronic pain; K21.9 Gastro-esophageal reflux disease without esophagitis; K52.9 Noninfective gastroenteritis and colitis, unspecified; F32.9 Major depressive disorder, single episode, unspecified; F41.9 Anxiety disorder, unspecified; J44.9 Chronic obstructive pulmonary disease, unspecified

== ENCOUNTER → 2018-06-21 10:27 | Outpatient (CLI) | payer MEDICARE, BC ==
[2018-05-02 13:26] VITALS: BMI 24.3
== END | disposition home or self-care (01) ==
LOC: D.US 06-17 14:00
DX: N39.0 Urinary tract infection, site not specified (principal)

== ENCOUNTER → 2018-08-09 13:39 | Outpatient (CLI) | payer MEDICARE, BC ==
[2018-05-02 13:26] VITALS: BMI 24.3
[2018-08-10 11:10] LABS: HEPATITIS C ANTIBODY 0.1 S/CO RAT (0.0-0.9)
== END | disposition home or self-care (01) ==
LOC: D.RT 13:39
PROVIDERS: Internal Medicine Pulmonary Disease
DX: R91.1 Solitary pulmonary nodule (principal); J84.112 Idiopathic pulmonary fibrosis; R74.8 Abnormal levels of other serum enzymes

== ENCOUNTER → 2019-02-07 07:33 | Outpatient (CLI) | payer MEDICARE, BC ==
[2018-05-02 13:26] VITALS: BMI 24.3
[2019-02-08 07:15] LABS: HEPATITIS C ANTIBODY <0.1 S/CO RAT (0.0-0.9)
== END | disposition home or self-care (01) ==
LOC: D.RT 07:33
PROVIDERS: ATTEND Internal Medicine Pulmonary Disease
DX: R91.1 Solitary pulmonary nodule (principal)

== ENCOUNTER → 2019-06-16 08:42 | Outpatient (CLI) | payer MEDICARE, BC ==
[2018-05-02 13:26] VITALS: BMI 24.3
[2019-06-16 10:52] LABS: ALBUMIN 3.9 g/dL (3.4-5.0); BILIRUBIN - DIRECT 0.14 mg/dL (0.00-0.30); BILIRUBIN - INDIRECT 0.26 mg/dL (0.00-1.00); BILIRUBIN - TOTAL 0.4 mg/dL (0.2-1.3); PROTEIN - SERUM 8.2 g/dL (6.4-8.2)
== END | disposition home or self-care (01) ==
LOC: D.RT 08:42
PROVIDERS: ATTEND Internal Medicine Pulmonary Disease
DX: J84.112 Idiopathic pulmonary fibrosis (principal)

== ENCOUNTER → 2020-02-27 12:36 | Outpatient (CLI) | payer MEDICARE, BC ==
[2018-05-02 13:26] VITALS: BMI 24.3
[2020-02-27 13:17] LABS: ALBUMIN 3.8 g/dL (3.4-5.0); BILIRUBIN - DIRECT 0.14 mg/dL (0.00-0.30); BILIRUBIN - INDIRECT 0.16 mg/dL (0.00-1.00); BILIRUBIN - TOTAL 0.3 mg/dL (0.2-1.3); PROTEIN - SERUM 7.3 g/dL (6.4-8.2)
== END | disposition home or self-care (01) ==
LOC: D.LAB 12:36
PROVIDERS: ATTEND Internal Medicine Pulmonary Disease
DX: Z11.59 Encounter for screening for other viral diseases (principal)

== ENCOUNTER → 2020-03-01 09:31 | Outpatient (CLI) | payer MEDICARE, BC ==
[2018-05-02 13:26] VITALS: BMI 24.3
== END | disposition home or self-care (01) ==
LOC: D.RT 12-17 10:30 → D.CT 12-17 11:00 → D.LAB 12-17 11:30 → D.RT 02-16 09:45 → D.CT 02-16 09:45 → D.RT 02-16 10:00 → D.CT 02-16 11:00 → D.LAB 08:15 → D.RT 09:30 → D.LAB 09:31
PROVIDERS: ATTEND Internal Medicine Pulmonary Disease
DX: Z11.59 Encounter for screening for other viral diseases (principal); J84.112 Idiopathic pulmonary fibrosis

== ENCOUNTER → 2020-05-14 09:33 | Outpatient (CLI) | payer MEDICARE, BC ==
[2018-05-02 13:26] VITALS: BMI 24.3
== END | disposition home or self-care (01) ==
LOC: D.LAB 09:33
PROVIDERS: ATTEND Internal Medicine Pulmonary Disease
DX: Z11.59 Encounter for screening for other viral diseases (principal)

== ENCOUNTER → 2020-05-18 09:30 | Outpatient (CLI) | payer MEDICARE, BC ==
[2018-05-02 13:26] VITALS: BMI 24.3
[2020-05-14 10:52] LABS: BILIRUBIN - DIRECT 0.15 mg/dL (0.00-0.30); BILIRUBIN - INDIRECT 0.28 mg/dL (0.00-1.00); BILIRUBIN - TOTAL 0.43 mg/dL (0.2-1.3); PROTEIN - SERUM 7.4 g/dL (6.4-8.2)
== END | disposition home or self-care (01) ==
LOC: D.RT 09:30
PROVIDERS: ATTEND Internal Medicine Pulmonary Disease
DX: J84.112 Idiopathic pulmonary fibrosis (principal)